=== PATIENT | male | born 1950 | race Caucasian/White ===

== ENCOUNTER 2018-02-02 05:14 | Day surgery (SDC) | payer MEDICARE, OTHER ==
[~2018-02-02] VITALS: Ht 177.8 cm; Wt 173.7 kg
--- NOTE | ~2018-02-02 | OP ---
PATIENT NAME: BRISA RAMOS MEDICAL RECORD: [id number] :48 LOCATION:[facility] ADMISSION DATE: SURGEON: TAMARA GREEN MD DATE OF OPERATION: 02/02/2018 PREOPERATIVE DIAGNOSIS: Iliopectineal bursitis of the right hip. POSTOPERATIVE DIAGNOSIS: Iliopectineal bursitis of the right hip. PROCEDURE: Injection of the right hip iliopectineal bursa under fluoroscopy. SURGEON: Tamara Green MD ANESTHESIA: TIVA. INTRAOPERATIVE COMPLICATIONS: None. OPERATIVE SUMMARY IN DETAIL: After obtaining the appropriate preoperative orthopedic surgery consents as well as anesthetic consultation, evaluation, and clearance, the patient was brought to the operating room and placed on the operating room table in supine position. After adequate TIVA anesthesia was administered, the patient's right inguinal area was prepped and draped in routine sterile fashion. An 18-gauge spinal needle was then directed under fluoroscopy into the iliopectineal bursa. Small amount of Isovue was then utilized to assure that the needle tip was in the appropriate position. Having completed this, 40 mg of Depo-Medrol and 5 cc of 0.25% Marcaine plain were injected into the iliopectineal bursa. Needle tip was then withdrawn. Bandage was applied. The patient was taken back to outpatient in stable condition. TRANSINT:[id number] Voice Confirmation ID: [id number] DOCUMENT ID: [id number] TAMARA GREEN MD at 1442 CC: [id number] DICTATION DATE: 02/02/18 0758 RICE FARMWORKER: 02/02/18 0824 [place] [facility] [place] [id number]
[~2018-02-02 05:14] MED LIST: ACETAMINOPHEN500 M1; ALBUTEROL SULF8.5 GM INH; ASPIRIN325 MG PO; CARDIZEM60 MG PO; DEXILANT60 MG PO; FLOMAX0.4 MG PO; HYDROCHLOROTHIA25 MG PO; LIPITOR10 MG PO; LISINOPRIL10 MG PO; MULTI-DAY VITAM1 TAB PO; NEURONTIN 300300 MG PO; OSTEO BI-FLEX1 EAC1 PO; VITAMIN B-12100 MCG PO; WELLBUTRIN SR150 MG PO
[2018-02-02 05:42] LABS: HEMATOCRIT 42.7 % (42.0-54.0); HEMOGLOBIN 14.5 g/dL (13.5-17.5); MCH 31.6 pg (26.0-34.0); MEAN PLATELET VOLUME 8.7 fL (7.4-10.4); RBC 4.59 10x6/uL (4.20-6.10); RDW 14.7 % (11.5-14.5); WBC 6.9 10x3/uL (4.8-10.8)
[2018-02-02 05:52] LABS: ANION GAP 9.2 mmol/L (8-16); CALCIUM 9.1 mg/dL (8.5-10.1); CARBON DIOXIDE 29.9 mmol/L (21.0-32.0); CREATININE - SERUM 1.4 mg/dL (0.6-1.3); POTASSIUM - SERUM 4.1 mmol/L (3.5-5.1)
[2018-02-02] MEDS ORDERED: VIAGRA100 MG (06:26)
[2018-02-02] MEDS ORDERED: CIALIS10 MG PO (06:28)
[2018-02-02 06:29] VITALS: BP 96/49; Ht 177.8 cm; Wt 173.7 kg
== END 2018-02-02 09:30 | disposition home or self-care (01) ==
LOC: D.OPS 05:14 → D.PAN 07:30 → D.OPS 09:00 → D.PAN 09:00 → D.OPS 09:30
PROVIDERS: Anesthesiology
DX: M70.71 Other bursitis of hip, right hip (principal); I10 Essential (primary) hypertension; I48.91 Unspecified atrial fibrillation

== ENCOUNTER 2018-05-04 08:29 | Day surgery (SDC) | payer MEDICARE, OTHER ==
[~2018-05-04] VITALS: Ht 177.8 cm; Wt 173.7 kg
[~2018-05-04 08:29] MED LIST changes: +CIALIS10 MG PO; +VIAGRA100 MG
[2018-05-04 09:00] LABS: HEMATOCRIT 44.5 % (42.0-54.0); MCH 31.4 pg (26.0-34.0); MCHC 33.7 g/dL (31.0-37.0); MCV 93.3 fL (80.0-100.0); MEAN PLATELET VOLUME 9.4 fL (7.4-10.4); RBC 4.77 10x6/uL (4.20-6.10); RDW 14.5 % (11.5-14.5)
[2018-05-04 09:31] VITALS: BP 115/74; Ht 177.8 cm; Wt 173.7 kg
--- NOTE | 2018-05-04 14:47 | OP ---
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 PROCEDURE: PRP injection into the right hip iliopsoas bursa. SURGEON: Tamara Green MD ANESTHESIA: TIVA. INTRAOPERATIVE COMPLICATIONS: None. OPERATIVE SUMMARY IN DETAIL: After obtaining the appropriate preoperative orthopedic surgery consent as well as anesthetic consultation, evaluation, and clearance, the patient was brought to the operating room and placed on the operating room table in supine position. After adequate TIVA anesthesia was administered, the patient's right hip and inguinal area were prepped and draped in routine sterile fashion. An 18-gauge needle was placed exactly over the iliopsoas bursa, small amount of contrast utilized to be sure that the needle was in appropriate position. At this point, 6 cc of platelet rich PlasmaBlade low neutrophil was injected into the iliopsoas bursa, the needle was withdrawn. Bandage applied. The patient was awakened and taken back to outpatient in stable condition. TRANSINT:[id number] Voice Confirmation ID: [id number] DOCUMENT ID: [id number] NORMA SYLVESTER, TAMARA CARBAJAL at 1447 CC: [id number] DICTATION DATE: 05/04/18 1301 RECEPTIONIST: 05/04/18 1324 [facility] [address] [place] [address]
== END 2018-05-04 14:20 | disposition home or self-care (01) ==
LOC: D.OPS 08:29 → D.PAN 17:45 → D.OPS 17:45
PROVIDERS: Anesthesiology
DX: M70.71 Other bursitis of hip, right hip (principal); M16.11 Unilateral primary osteoarthritis, right hip; Z01.812 Encounter for preprocedural laboratory examination